=== PATIENT | male | born 1955 | race Caucasian/White ===

== ENCOUNTER → 2016-11-07 | Outpatient (CLI) | payer MEDICARE ==
[~2016-11-07] MED LIST: ASA CHILDREN'S81 MG PO; BACLOFEN10 MG PO; FLAX SEED OIL1 EACH PO; KLONOPIN DPS1 MG PO; LIORESAL DPS20 MG PO; MAALOX DPS30 ML PO; NORVASC5 MG PO; SURFAK DPS240 MG PO; THERAPEUTIC MUL1 TAB PO; TYLENOL DPS325 MG PO
== END | disposition home or self-care (01) ==
LOC: RAD.S 08:43
DX: N36.44 Muscular disorders of urethra (principal); R33.9 Retention of urine, unspecified; N13.30 Unspecified hydronephrosis; N28.89 Other specified disorders of kidney and ureter